=== PATIENT | female | born 1985 ===

== ENCOUNTER 2024-06-07 11:10 | Emergency (ER) | payer MEDICARE, MEDICAID, SELFPAY ==
[2024-06-07 11:23] VITALS: BP 98/35; PULSE 83; RESP 16; TEMP 37; O2SAT 100; BMI 23.9
--- NOTE | 2024-06-07 11:26 | ED_ITS ---
HPI - General Adult General Chief complaint: Back Pain/Injury Stated complaint: Back pain, discolored urine Time Seen by Provider: 06/07/24 17:26 Source: patient Limitations: no limitations History of Present Illness ED Provider: Zamzam Arevalo PA-C HPI narrative: 38-year-old female who is presenting with low back pain, dysuria and discolored urine for over a week. Denies nausea vomiting fever or history of kidney stone. Patient states she has been doing a great deal of heavy lifting and moving, she could have strained her back as well. Pain is worse with movement. Patient also expresses concern for risk for STD exposure, however she is already being treated, but she has not been tested. Denies abdominal pain or vaginal discharge. Related Data Allergies Allergy/AdvReac Type Severity Reaction Status Date / Time No Known Allergies Allergy Verified 06/07/24 11:26 Review of Systems 2 Review of Systems: Yes all other systems are reviewed and are negative Constitutional: Constitutional: Denies fatigue and Denies fever(s) Cardiovascular: Cardiovascular: Denies chest pain and Denies dyspnea Respiratory: Respiratory: Denies cough and Denies dyspnea Gastrointestinal: Gastrointestinal: Denies abdominal pain, Denies nausea and Denies vomiting Genitourinary: Genitourinary: Reports dysuria and Denies vaginal discharge Musculoskeletal: Musculoskeletal: Reports back pain Endocrine: Endocrine: Denies fatigue PMFSH Past Medical History Attestation statement: The following information was validated with the patient. Physical Exam ED Vital Signs: Vital Signs - 24 hr 06/07/24 11:23 Temperature 98.6 F Pulse Rate 83 Respiratory Rate 16 Blood Pressure 98/35 L Pulse Oximetry 100 Oxygen Delivery Method Room Air BMI result Body Mass Index 23.9 Const Other: Alert well-appearing Orientation/consciousness: patient oriented x3 Resp Effort & Inspection: normal respiratory effort Cardio Other: Normal peripheral perfusion Skin Other: Warm dry no rash Neuro General: patient oriented x3, gait normal, no focal motor deficits and CN's II- XI intact bilaterally Psych Other: Calm cooperative Course Course Course Narrative: This is a rapid medical exam performed by Zamzam Arevalo PA-C. The patient is a 38-year-old female who is presenting with low back pain, dysuria and discolored urine for over a week. On exam she has no CVA tenderness, she is afebrile. We will be screening basic labs and a urinalysis. The patient is stable and can return to the waiting room pending her full medical assessment. Medical Decision Making Medical Decision Making MDM Narrative: 38-year-old female who is presenting with low back pain, dysuria and discolored urine for over a week. Denies nausea vomiting fever or history of kidney stone. Patient states she has been doing a great deal of heavy lifting and moving, she could have strained her back as well. Pain is worse with movement. Patient also expresses concern for risk for STD exposure, however she is already being treated, but she has not been tested. Denies abdominal pain or vaginal discharge. Problem: STD exposure History: Per patient I have considered the following differential diagnoses: UTI, pyelonephritis, renal colic, cervicitis, TOA Plan: Concern for UTI and pyelonephritis given concurrent back pain. Although the patient does have a mechanism of injury to support musculoskeletal pain as well. She is also afebrile without active nausea vomiting to suggest pyelonephritis. Screening labs including urinalysis were obtained from triage. I did consider cervicitis and TOA, however she is not having vaginal discharge no abdominal pain. No indication for imaging. Patient is also requesting testing for both gonorrhea and chlamydia, to note again she has already started treatment. I have independently reviewed the following tests: Labs: No leukocytosis, not anemic, no electrolyte abnormality, creatinine normal, urine is concentrated Lab Data 06/07/24 12:01 06/07/24 12:01 Labs: Lab Results 06/07/24 Range/Units 12:01 WBC 8.9 (4.8-10.8) X10*3/uL RBC 4.17 L (4.20-5.50) X10*6/uL Hgb 11.0 L (12.0-16.0) g/dl Hct 34.5 L (37.0-47.0) % MCV 82.7 (80.0-98.0) fL MCH 26.4 L (27.0-33.0) pg MCHC 31.9 (31.0-35.0) g/dl RDW 16.4 H (11.0-16.0) % Plt Count 326 (160-400) X10*3/uL MPV 9.7 (9.4-12.3) fL Immature Gran % (Auto) 0.3 (0.0-0.4) % Neut % (Auto) 62.2 (45-73) % Lymph % (Auto) 28.6 (20-40) % [place] % (Auto) 7.0 (2-11) % Eos % (Auto) 1.7 (0-4) % Baso % (Auto) 0.2 (0-2) % Lymph # (Auto) 2.6 (1.2-4.9) X10*3/uL [place] # (Auto) 0.6 (0.1-1.2) X10*3/uL Eos # (Auto) 0.2 (0.0-0.4) X10*3/uL Baso # (Auto) 0.0 (0.0-0.2) X10*3/uL Abs Immat Gran (auto) 0.03 (0.00-0.03) X10*3/uL Absolute Neuts (auto) 5.5 (2.0-8.3) x10*3/uL Absolute Nucleated RBC 0.000 (0.0-0.012) X10*3/uL Nucleated RBC % (auto) 0.0 (0.0-0.2) /100WBC Sodium 137 (135-145) mmol/L Potassium 3.5 (3.3-5.1) mmol/L Chloride 109 H (96-108) mmol/L Carbon Dioxide 23 (22-29) mmol/L Anion Gap 9 L (12-20) BUN 11 (9-16) mg/dL Creatinine 0.55 (0.5-1.4) mg/dL Estim Creat Clear Calc 120.9 Estimated GFR > 60 Random Glucose 87 (60-115) mg/dL Calcium 9.0 (8.4-10.2) mg/dL Magnesium 2.1 (1.6-2.6) mg/dL Total Bilirubin 0.3 (0.0-1.0) mg/dL AST 23 (5-31) U/L ALT 18 (0-31) U/L Alkaline Phosphatase 63 (39-117) U/L Total Protein 7.0 (6.5-8.0) g/dL Albumin 4.0 (3.5-5.0) g/dL Lipase 19 (8-78) U/L Beta HCG, Quant < 2 mIU/mL Urine Color Dark Yellow Urine Appearance Cloudy Urine pH 5.5 (5.0-9.0) Ur Specific [place] 1.025 (1.005-1.025) Urine Protein Trace (Neg-Trace) mg/dL Urine Glucose (UA) Negative (Negative) mg/dL Urine Ketones Trace (Negative) mg/dL Urine Blood Negative (Negative) Urine Nitrite Negative (Negative) Ur Leukocyte Esterase Small (1+) H (Negative) Urine RBC 0-2 (0-2) /HPF Urine WBC 0-5 (0-5) /HPF Ur Squamous Epith Cells 11-20 (0-2) /HPF Urine Bacteria 1+ (None Seen) Hyaline Casts 0-2 (0-2) /LPF Discharge Plan Discharge Clinical Impression: Thoracic back pain, Dehydration Patient Disposition: Home, Self-Care Instructions: Dehydration (ED), Thoracic Pain (ED) Additional Instructions: All of your labs including your kidney function were normal, your urine is not infected it is concentrated, you need to drink more water. We all should be drinking approximately 96 oz of water a day. In regard to your STD testing, we are screening you for gonorrhea and chlamydia. This testing we will not return today, it should be complete within 1-2 days. You can check your patient portal for results. If you require additional treatment, medication we will be sent to a pharmacy of your choosing. Print Language: Slovak
[2024-06-07 12:11] LABS: MANUAL DIFF FLAG NO
[2024-06-07 12:12] LABS: Basophils Percent Auto 0.2 % (0-2); Eosinophils Absolute Auto 0.2 X10*3/uL (0.0-0.4); Eosinophils Percent Auto 1.7 % (0-4); Hematocrit 34.5 % (37.0-47.0); Imm Gran Abs Auto 0.03 X10*3/uL (0.00-0.03); Imm Gran Pct Auto 0.3 % (0.0-0.4); Lymphocytes Absolute Auto 2.6 X10*3/uL (1.2-4.9); Lymphocytes Percent Auto 28.6 % (20-40); Mean Corpuscular HGB Conc 31.9 g/dl (31.0-35.0); Mean Corpuscular Hemoglobin 26.4 pg (27.0-33.0); Mean Corpuscular Volume 82.7 fL (80.0-98.0); Mean Platelet Volume 9.7 fL (9.4-12.3); Monocytes Absolute Auto 0.6 X10*3/uL (0.1-1.2); Neutrophils Absolute Auto 5.5 x10*3/uL (2.0-8.3); Neutrophils Percent Auto 62.2 % (45-73); Platelet Count 326 X10*3/uL (160-400); Red Blood Count 4.17 X10*6/uL (4.20-5.50); Red Cell Distribution Width 16.4 % (11.0-16.0); White Blood Count 8.9 X10*3/uL (4.8-10.8)
[2024-06-07 12:13] LABS: Appearance Urine Cloudy; Color Urine Dark Yellow; Glucose Urine UA Negative (Negative); Leukocyte Esterase Urine Small (1+) (Negative); Nitrite Urine Negative (Negative); PH 5.5 (5.0-9.0); Specific Gravity - Urine 1.025 (1.005-1.025); UMIC TRIGGER UACC YES; Urine Blood Negative (Negative); Urine Ketones Trace mg/dL (Negative); Urine Protein Trace mg/dL (Neg-Trace)
[2024-06-07 12:29] LABS: Bacteria Urine 1+ (None Seen); Hyaline Casts Urine 0-2 /LPF (0-2); RBC Urine 0-2 /HPF (0-2); UACC Culture Trigger YES; WBC Urine 0-5 /HPF (0-5)
[2024-06-07 12:38] LABS: Alanine Aminotransferase 18 U/L (0-31); Alkaline Phosphatase 63 U/L (39-117); Anion Gap 9 (12-20); Aspartate Amino Transferase 23 U/L (5-31); Bilirubin Total 0.3 mg/dL (0.0-1.0); Blood Urea Nitrogen 11 mg/dL (9-16); Carbon Dioxide 23 mmol/L (22-29); Chloride 109 mmol/L (96-108); Creatinine Clr Calc Pharmacy 120.9; Estimated Glomerular Filt Rate > 60; Glucose Random 87 mg/dL (60-115); Lipase 19 U/L (8-78); Magnesium 2.1 mg/dL (1.6-2.6); Potassium 3.5 mmol/L (3.3-5.1); Sodium 137 mmol/L (135-145)
[2024-06-07 12:39] LABS: HCG Quantitative < 2 mIU/mL
--- OUTSIDE RECORDS SUMMARY | 2024-06-07 17:35 | XMS_ITS | Patient Health Record ---
Author Organization [facility] Address [address] [place] [address] [address] [place] [address] Care Team Providers Care Customer Sales Specialist Name Role Phone Mckenzie Salguero APRN Primary Care Provider MELE Quezada [phone] REASON FOR REFERRAL Reason Palpitation workup Diagnosis 1 AVM (Q27.30) Referral Organization [facility] Referring Provider First Name MELE Referring Provider Last Name JUSTIN Referring Provider Speciality Neurosurge guanaco Referred Provider Soto Daigle Referred Provider Specialty Internal Med icine Referral Priority Routine PROBLEMS Problem Type ICD Code Onset Dates Problem Status W/U Status Risk SNOMED Code Notes Problem Arteriovenous malformation, 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 (85280052) Problem AVM (Q27.30) Active confirmed Problem 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 Cerebral hemorrhage (272890144) Encounters Encounter Location Date Provider Diagnosis [facility] [address] [address] [place] [address] 07/25/2023 MELE ANDERSON [facility] [address] [place] [address] 12/08/2023 MELE ANDERSON [facility] [address] [address] [place] [address] 12/13/2023 MELE ANDERSON [facility] Neurosurgery [address] [place] [address] 05/10/2024 MELE ANDERSON PLAN OF TREATMENT Pending Test Test Name Order Date MRI : Brain with and without contrast Insurance Providers Payer Name Payer Address Payer Phone Subscriber Number Group Number Insured Name Patient Relationship to Insured Coverage Start Date Coverage End Date [place] [address] [address] [place] [address] [id number] Kristal Patton Self - patient is the insured [place] [address] [place] [address] [phone] [id number] Kristal Patton Self - patient is the insured
--- OUTSIDE RECORDS SUMMARY | 2024-06-07 17:36 | XMS_ITS ---
Author Organization [facility] Address [address] [facility] [address] [address] [place] [address] Care Team Providers Care Silviculturist Name Role Phone Mckenzie Salguero APRN Primary Care Provider Unavailable MELE ANDERSON Unavailable [phone] REASON FOR VISIT Gamma knife w/angio Encounters Encounter Location Date Provider Diagnosis [facility] [address] [place] [address] 12/08/2023 MELE ANDERSON PLAN OF TREATMENT No Information
--- OUTSIDE RECORDS SUMMARY | 2024-06-07 17:36 | XMS_ITS | Clinical Summary ---
Author Organization [facility] it Address [address] [place] [address] Care Team Providers Care Rn Ed Name Role Phone Isamar Gorman MD Primary Care Provider [phone] Social History Tobacco Use Types Packs/Day Years Used Date Smoking Tobacco: Never Assessed Sex and Gender Information Value Date Recorded Sex Assigned at Not on file Gender Identity Not on file Sexual Orientation Not on file Plan of Treatment Health Maintenance Due Date Last Done Comments Hepatitis B Vaccines (1 of 3 - 19+ 3-dose series) 2005 Cervical Cancer Screening: P ap Smear 2007 COVID-19 Vaccine (2023-2 5 season) 2023 Influenza Vaccine (#1) 2023 01/26/2017 DTaP,Tdap,and Td Vaccines (2 - Td or Tdap) 03/30/2027 03/30/2017 HIB Vaccines Aged Out No longer eligi ble based on patient's age to complete this topic HPV Vaccines Aged Out No longer eligi ble based on patient's age to complete this topic Hepatitis A Vaccines Aged Out No long er eligible based on patient's age to complete this topic IPV Vaccines Aged Out No longer eligi ble based on patient's age to complete this topic MMR Vaccines Aged Out No longer eligi ble based on patient's age to complete this topic Meningococcal ACWY Vaccine Aged Out N o longer eligible based on patient's age to complete this topic Pneumococcal Vaccine: Pediat rics (0 to 5 Years) and At-Risk Patients (6 to 64 Years) Aged Out No longer eligi ble based on patient's age to complete this topic RSV Immunization Patients Un thomas 20 months Aged Out No longer eligible b ased on patient's age to complete this topic Varicella Vaccines Aged Out No longer eligible based on patient's age to complete this topic Care Teams Rn Ed Relationship Specialty Start Date End Date Isamar Gorman MD [address] [place] [phone] PCP - General Internal Medicine 10/10/16
--- OUTSIDE RECORDS SUMMARY | 2024-06-07 17:36 | XMS_ITS ---
Author Organization [facility] Address [address] [address] [place] [address] Care Team Providers Care Life Skills Trainer Name Role Phone Mckenzie Salguero APRN Primary Care Provider MELE Quezada Unavailable [phone] REASON FOR VISIT Pin sites follow up Encounters Encounter Location Date Provider Diagnosis [facility] [address] [address] [place] [address] 12/13/2023 MELE ANDERSON PLAN OF TREATMENT No Information
--- OUTSIDE RECORDS SUMMARY | 2024-06-07 17:36 | XMS_ITS ---
Author Organization [facility] Address [address] [facility] [address] [address] [place] [address] Care Team Providers Care Aircraft Maintenance Technician Name Role Phone Mckenzie Salguero APRN Primary Care Provider Unavailable MELE ANDERSON Unavailable [phone] REASON FOR VISIT Moving Encounters Encounter Location Date Provider Diagnosis [facility] Neurosurgery [address] [place] [address] 05/10/2024 MELE ANDERSON PLAN OF TREATMENT No Information
[2024-06-07 17:46] VITALS: BP 98/35; PULSE 83; RESP 16; TEMP 37; O2SAT 100
[2024-06-08 12:26] LABS: CT PCR NOT DETECTED (Not Detect.); NG PCR NOT DETECTED (Not Detect.)
== END 2024-06-07 17:48 | disposition home or self-care (01) ==
PROVIDERS: Physician Assistant Medical; Emergency Provider Emergency Medicine Emergency Medical Services
DX: M54.6 Pain in thoracic spine (principal); E86.0 Dehydration; R10.2 Pelvic and perineal pain; Z20.2 Contact with and (suspected) exposure to infections with a predominantly sexual mode of transmission; Z79.899 Other long term (current) drug therapy
CPT/HCPCS: 36415; 80053; 81001; 83690; 83735; 84702; 85025; 87086; 87491; 87591; 99282; 99283

== ENCOUNTER 2024-10-09 15:30 | Outpatient (REF) | payer MEDICARE, MEDICAID, SELFPAY ==
--- NOTE | ~2024-10-09 | MR_ITS ---
CLINICAL HISTORY: Arteriovenous Malformation (AVM) MR Brain with and without intravenous contrast Comparison: None available Findings: No restricted diffusion acute brain infarction. Vascular enhancement appears intra-axial and extra-axial including the genu of the corpus callosum (as can be seen with reported arteriovenous malformation), sulci between frontal lobes, and frontal lobes anterior to the corpus callosum. Vascular nodular enhancement is predominately in the right frontal lobe of the anterior margin of the corpus callosum with nidus measuring 7 x 8 x 7 mm in the right frontal lobe. Adjacent extra-axial vascularity favored to represent prominent in dilated pericallosal artery (branch of the CHET) supporting CHET contribution. Additional vessel and mild siderosis extends into the left frontal lobe (image 28 of series 11). Previous rupture or leakage is considered given intra-axial siderosis in the left frontal lobe. Abnormal T2 prolongation is predominately in the right frontal lobe and also extends to involve left frontal lobe and genu of the corpus callosum. Differential considerations include gliosis, dysplasia, and edema. Low-grade neoplasm is not excluded at this time given mild obscuration of the macdonald matter and mild mass-effect including the medial margin of the right frontal lobe adjacent to corpus callosum. No midline shift or hydrocephalus. Perivascular spaces are noted including bilateral basal ganglia regions. No arterial territorial infarction. Fluid and mucosal thickening including the paranasal sinuses. Small left mastoid effusion. Orbits are unremarkable for artifacts. IMPRESSION: 1. 8 mm nidus in the right frontal lobe from reported arteriovenous malformation. Mild vessels extend into Januvia corpus callosum and left frontal lobe as noted. 2. Mild T2 signal predominately in the right frontal lobe noted about the vascular malformation. Differential considerations include edema. Please consider attention on follow-up to ensure stability. 3. Minimal siderosis in the left frontal lobe is nonspecific. Previous vessel leakage is considered. 4. Otherwise, normal MR signal of the brain parenchyma. This document has been electronically signed by: Balta Sun MD on 10/10/2024 19:45:55
[2024-10-09] MEDS: gadobutroL 7.5 ML VIAL IVPUSH (16:08)
--- OUTSIDE RECORDS SUMMARY | 2024-10-09 17:57 | XMS_ITS | Encounter Summary ---
Author Organization [employer] Address [address] [place] [address] Care Team Providers Care Agricultural Education Professor Name Role Phone Elana Cleveland MD Primary Care Provider [phone] Reason for Referral * Imaging (Routine) - Authorized Specialty Diagnoses / Procedures Referred By Contac t Referred To Contact Radiology Diagnoses AVM (arteriovenous malformation) brain Procedures Mr Brain w/ and w/o Contrast Elana Cleveland MD [address] [place] [address] Phone: tel: fax: [address] Phone: tel: fax: Referral ID Status Reason Start Date Expiration Date V isits Requested Visits Authorized [id number] Authorized 09/20/2024 09/20/2025 1 1 Encounter Details Date Type Department Care Team (Late st Contact Info) Description 09/20/2024 Orders Only [facility] [address] [place], [place] [phone] Elana Cleveland MD [address] [place], [place] [phone] AVM (arteriovenous malformation) brain (Primary Dx) Social History Tobacco Use Types Packs/Day Years Used Date Smoking Tobacco: Never Passive Smoke Exposure: Never Smokeless Tobacco: Never Depression Answer Date Recorded Patient Health Questionnaire-9 Score 15 08/16/2024 Patient Health Questionnaire-9 Score 15 08/16/2024 Last PHQ-9: Questionnaire Data Not on file 0 08/16/2024 Housing Stability Answer Date Recorded What is your housing situation today? I have whitney lima 08/08/[address] you li ve. Do you have problems with any of the following? None of the above 08/08/2024 Food Insecurity Answer Date Recorded Within the past 12 months, y ou worried that your food would run out before you got money to buy more: Never True 08/08/2024 Within the past 12 months,th e food you bought just didn't last and you didn't have enough money to get more: Never True 01/2025 Transportation Answer Date Recorded In the past 12 months, has l ack of transportation kept you from medical appts, meetings, work or from getting things needed for daily living? Yes, it has kept me from medical appointments or getting medications. 08/08/2024 Utilities Answer Date Recorded In the past 12 months, has t he electric, gas, oil or water company threatened to shut off services in your home? No 08/08/2024 Depression Answer Date Recorded Patient Health Questionnaire-2 Score 4 08/16/2024 Internet Access Answer Date Recorded Internet Access Q1 Yes 08/08/2024 Internet Access Q2 Not on file 08/08/2024 Comments Unknown Sex and Gender Information Value Date Recorded Sex Assigned at Female 02/28/2022 10:15 AM EDT Legal Sex Female 10:15 AM EDT Gender Identity Choose not to disclose 10:15 AM EDT Sexual Orientation Choose not to disclose 2021 10:15 AM EDT documented as of this encounter Plan of Treatment Upcoming Encounters Date Type Department Care Team (Late st Contact Info) Description 11/18/2024 4:00 PM EDT Procedure Visit [facility] [address] [place] [address] Elana Cleveland MD [address] [place] [address] Scheduled Orders Name Type Priority Associated Diagnoses Orde r Schedule Mr Brain w/ and w/o Contrast Imaging Routine AVM (arteriovenous malformation) brain Expected: 09/20/2024, Expires: 09/20/2025 documented as of this encounter Visit Diagnoses Diagnosis AVM (arteriovenous malformation) brain- Primary documented in this encounter Additional Health Concerns Assessment Noted Time PHQ-9 Depression Total Score: 15 025 8:54 AM EDT documented as of this encounter Care Teams Agricultural Education Professor Relationship Specialty Start Date End Date Elana Cleveland MD [address] [place] [address] PCP - General Family Medicine 08/16/24 documented as of this encounter
== END 2024-10-09 15:31 | disposition home or self-care (01) ==
LOC: HO.MRI 15:30
PROVIDERS: PCP General Practice; Visit Provider General Practice
DX: Q28.2 Arteriovenous malformation of cerebral vessels (principal)
CPT/HCPCS: 70553; A9585

== ENCOUNTER → 2024-10-09 15:36 | Outpatient (BNV) | payer MEDICARE, MEDICAID, SELFPAY | PROVIDERS: PCP General Practice; Visit Provider Radiology Neuroradiology | DX: Q28.2 Arteriovenous malformation of cerebral vessels (principal) | CPT/HCPCS: 70553 ==

== ENCOUNTER 2024-11-18 17:29 | Outpatient (REF) | payer MEDICARE, MEDICAID, SELFPAY ==
--- OUTSIDE RECORDS SUMMARY | 2024-05-23 06:40 | XMS_ITS | Continuity of Care Document ---
Author Organization [facility]. If a dditional information is needed, contact Health Information Management at [phone] [address] [place] [address] Phone Care Team Providers Care [employer] Boss Name Role Phone Unavailable Unavailable Unavailable Unavailable Unavailable Unavailable Unavailable Unavailable Unavailable Unavailable Unavailable Unavailable Unavailable Unavailable Unavailable Unavailable Unavailable Unavailable Unavailable Unavailable Unavailable Unavailable Unavailable Unavailable Unavailable Unavailable Unavailable Unavailable Unavailable Unavailable Unavailable Unavailable Unavailable Unavailable Unavailable Unavailable Unavailable Unavailable Unavailable Unavailable Unavailable Unavailable Unavailable Unavailable Unavailable Unavailable Problems Vasitis Onset:23-May-2024 Cesar Francois MD Vaginitis Onset:23-May-2024 Cesar Francois MD Venereal disease screening Onset:23-May-2024 Cesar Francois MD Bacterial conjunctivitis Onset:07-Feb-2023 Hong Rush MD Depressive disorder Onset:23-Aug-2022 Cesar Francois MD Abscess Onset:30-Mar-2022 [facility] Dental caries Onset:30-Dec-2021 Anna Muñoz MD DENTAL INFECTION Onset:30-Dec-2021 Anna Muñoz MD DENTAL PAIN Onset:30-Dec-2021 Anna Muñoz MD Suspected COVID-19 Onset:03-Nov-2021 Donna Escobar MD Acute viral disease Onset:03-Nov-2021 Donna Escobar MD Renewal of prescription Onset:11-Sep-2021 Santosh Harper PA Drug withdrawal Onset:11-Aug-2021 TAMRO Urinary tract infectious dis ease Onset:13-Apr-2021 Cesar Francois MD Dysuria Onset:13-Apr-2021 Cesar Francois MD Epidermal burn of thumb Onset:12-Dec-2020 Donna Escobar MD Allergies and Adverse Reactions No Known Allergies(Allergy) Onset: 12-Dec-2020 Medications ibuprofen 800 MG Oral Tablet ;800 MILLIGRAM* ORAL TID PRN Start:30-Mar-2022 Status:Discontinued Comments:800 MG PO TID PRN As Needed for pAIN clindamycin 300 MG Oral Caps ule [Cleocin];300 MILLIGRAM* ORAL Q8HR Start:30-Mar-2022 Status:Discontinued Comments:300 MG PO Q8HR AMOXIL 500 MG;500 MILLIGRAM* ORAL Q8HR Start:30-Dec-2021 Status:Discontinued Comments:500 MG PO Q8HR OLANZapine 10 MG Disintegrat ing Oral Tablet;10 MILLIGRAM* ORAL DAILY Start:11-Sep-2021 Status:Discontinued Comments:10 MG PO DAILY PARoxetine 20 MG (as PARoxet ine hydrochloride 22.76 MG ) Oral Tablet;20 MILLIGRAM* ORAL DAILY Start:11-Sep-2021 Status:Discontinued Comments:20 MG PO DAILY mirtazapine 15 MG Disintegra ting Oral Tablet [Remeron];15 MILLIGRAM* ORAL QHS Start:11-Sep-2021 Status:Discontinued Comments:15 MG PO QHS OLANZapine 10 MG Oral Tablet ;10 MILLIGRAM* ORAL QHS Start:11-Aug-2021 Status:Discontinued Comments:10 MG PO QHS PARoxetine 20 MG (as PARoxet ine hydrochloride 22.76 MG ) Oral Tablet;20 MILLIGRAM* ORAL DAILY Start:11-Aug-2021 Status:Discontinued Comments:20 MG PO DAILY mirtazapine 15 MG Oral Table t [Remeron];15 MILLIGRAM* ORAL QHS Start:11-Aug-2021 Status:Discontinued Comments:15 MG PO QHS mirtazapine 7.5 MG Oral Tabl et Start:13-Apr-2021 Status:Discontinued OLANZapine 5 MG Oral Tablet; 5 MILLIGRAM* ORAL DAILY Start:13-Apr-2021 Status:Discontinued Comments:5 MG PO DAILY PARoxetine hydrochloride 10 MG Oral Tablet [Paxil] Start:13-Apr-2021 Status:Discontinued cephalexin 500 MG Oral Capsu le;500 MILLIGRAM* ORAL Q8H Start:13-Apr-2021 Status:Discontinued Comments:500 MG PO Q8H Social History Smoking Status Smokes tobacco daily Recorded: 23-May-2024 Smokes tobacco daily Recorded: 07-Feb-2023 Smokes tobacco daily Recorded: 23-Aug-2022 Smokes tobacco daily Recorded: 30-Mar-2022 Tobacco smoking consumption unknown Recorded: Dec-2021 Never smoked tobacco Recorded: 03-Nov-2021 Never smoked tobacco Recorded: 11-Sep-2021 Never smoked tobacco Recorded: 11-Aug-2021 Never smoked tobacco Recorded: 13-Apr-2021 Never smoked tobacco Recorded: 12-Dec-2020 Results Urine Culture CC/Cath Indwell Ordered On:23-May-2024 21:17 Clean Catch Urine CultureSpecialResults:NGU1No Growth URINALYSIS W/REFLEX CULTURE Ordered On:23-May-2024 Comments:Indication for culture: Dysuria/Frequency 23-May-2024 10:36 UA APPEARANCECLEAR Range:CLEAR UA BILIRUBIN DIPSTICKNEGATIVE Ra nge:NEGATIVE UA BLOOD DIPSTICKNEGATIVE Range: NEGATIVE UA COLORYELLOW Range:YELLOW UA GLUCOSE DIPSTICKNEGATIVEmg/dL Range:NEGATIVE mg/dL UA KETONE DIPSTICKTRACEmg/dL Ran ge:NEGATIVE mg/dL UA LEUKOCYTE ESTERAS E DIPSTICKSMALL(Abnormal) Range:NEGATIVE UA NITRITE DIPSTICKNEGATIVE Rang e:NEGATIVE UA PH DIPSTICK7.5(Normal) Range: 5-8.5 UA PROTEIN DIPSTICKTRACEmg/dL Ra nge:NEGATIVE mg/dL UA SPECIFIC GRAVITY1.020 UA UROBILINOGEN DIPSTICK1.0{E.U./dL} Range:0.2{E.U./dL}-1{E.U./dL} UA MICROSCOPIC Ordered On:23-May-2024 Comments: Indication for culture: Dysuria/Frequency 23-May-2024 10:36 UA BACTERIAFEW(Abnormal) Range :NEGATIVE UA EPITHELIAL CELLSFEW/[HPF] Ran ge:FEW /Hpf UA RBC2-5/[HPF](Abnormal) Range: 0/[HPF]-2/[HPF] UA NHI48-53/[HPF](Abnormal) Rang e:0/[HPF]-2/[HPF] UA AMORPHOUS SEDIMENTFEW Range:N EGATIVE UA TRICHOMONASRARE Range:NEGATIV E TRICHOMONAS WET PREP Ordered On:23-May-2024 10:31 TRICHOMONAS WET PREP Result Prompts:CLUE CELLS FEW, ATRICHOMONAS MODERATE, AYEAST NONE SEEN(Abnormal) DNA PROBE CHLAMYDIA GC Ordered On:23-May-2024 14:42 DNA PROBE CHLAMYDIANegative Ra nge:Negative Comments:The GenProbe Aptima uses Target Capture (rRNA) withamplification to qualitatively detect Chlamydia trachomatisin endocervical or urethral swab specimens or in urinesamples. This assay is not FDA approved for sites other thanurogenital and urine samples. Other specimen sources (i.e.nasopharyngeal, rectal) are not acceptable for testing. DNA PROBE N.GONORRHE A (GC)Negative Range:Negative Comments:The GenProbe Aptima uses Target Capture (rRNA) withamplification to qualitatively detect Neisseria gonorrhoeaein endocervical or urethral swab specimens or in urinesamples. This assay is not FDA approved for sites other thanurogenital and urine samples. Other specimen sources (i.e.nasopharyngeal, rectal) are not acceptable for testing. Vital Signs 23-May-2024 09:42 Erftxaysmtw22.2f Comments:98.2 Pulse93 Comments:93 Respiratory Rate16 Comments:16 O2 IVR646% Comments:100 BP [id number][Hg] Comments:11 1 BP Hqgqookyc73vl[Hg] Comments:77 Height5.2974337[ft_us] Comments: 5 Tobjsx27.364kg Comments:61.364 23-May-2024 09:42 BMI23.2kg/m2 Comments:23.2 Encounters Emergency Encounter Reason:STI TESTING Encounter Diagnosis:Encounter for screening for infections with a predominantly sexual mode of transmission,Nicotine dependence, unspecified, uncomplicated,Acute vaginitis 23-May-2024 09:[id number] 10:40 [facility] Discharge Disposition:Discharged to home or self care (routine discharge) Cesar Francois MD-23-May-2024 [facility] ([facility])EMERGENCY PROVIDER REPORTREPORT#:[id number] REPORT STATUS: SignedDATE:05/23/24 TIME: 1030PATIENT: GENIA RICHTER UNIT #: [id number]#: [id number] ROOM/BED:: 86 AGE: 39 SEX: F PCP PHYS: Mckenzie Salguero APRNSERVICE AUTHOR: Sachi New MDREP SRV REP SRV TM: 1030* ALL edits or amendments must be made on the electronic/computer document *HPI-General IllnessGeneralInitial Greet Date/Time 05/23/24 0945PresentationChief Complaint __ ( STD screening)Past Medical History - AdultStated Complaint STI TESTINGAllergiesCoded Allergies:No Known Allergies (12/12/20)Home MedicationsActive ScriptsGentamicin Sulfate 1 DROP RIGHT EYE Q4HR Gentamicin Sulfate 1 DROP RIGHT EYE Q4HR #5 ML Prov: 02/07/23Mirtazapine 15 MG PO QHS Mirtazapine 15 MG PO QHS #30 TAB Prov: SACHI NEW MD 08/23/22OLANZapine (ZyPREXA ZYDIS) 10 MG PO DAILY OLANZapine (ZyPREXA ZYDIS) 10 MG PO DAILY #30 TAB Prov: SACHI NEW MD 08/23/22Past Medical History:Reports: Depression/mood disorder.Additional Medical HistoryptsdSmoking status for patients 13 years old or older: Current every day smokerPhysical ExamVital SignsVital SignsFirst Documented: Result Date Time Pulse Ox 100 05/23 0942 B/P 111/77 05/23 0942 B/P Mean 88 05/23 0942 O2 Delivery Room air 05/23 941 Temp 36.8 05/23 0942 Pulse 93 05/23 0942 Resp 16 05/23 0942Last Documented: Result Date Time Pulse Ox 100 05/23 0942 B/P 111/77 05/23 0942 B/P Mean 88 05/23 0942 O2 Delivery Room air 05/23 941 Temp 36.8 05/23 0942 Pulse 93 05/23 0942 Resp 16 05/23 0942Review of Vital Signs ReviewedPhysical ExamGenitourinary General Client Consultant present (RN) Female Genitourinary External genitalia NL, No bleeding, No cervical motiontend, Os closed, No foreign body, No adnexal mass, No adnexal tenderness Text/Dict NotesTake yellowish discharge,Interpretation DiagnosticsLab Results InterpretationResultsLaboratory Tests: 05/23 0956 Serology Chlamydia DNA Probe (Negative) Negative N.gonorrhoeae DNA Probe (Negative) Negative Urines Urine Color (YELLOW) YELLOW Urine Appearance (CLEAR) CLEAR Urine pH (5.0 - 8.5) 7.5 Ur Specific [place] 1.020 Urine Protein (NEGATIVE mg/dL) TRACE Ur Glucose (Stick) (NEGATIVE mg/dL) NEGATIVE Urine Ketones (NEGATIVE mg/dL) TRACE Urine Blood (NEGATIVE) NEGATIVE Urine Nitrite (NEGATIVE) NEGATIVE Urine Bilirubin (NEGATIVE) NEGATIVE Urine Urobilinogen (0.2 - 1.0 E.U./dL) 1.0 Ur Leukocyte Esterase (NEGATIVE) SMALL H Urine RBC (0 - 2 /Hpf) 2-5 H Urine WBC (0 - 2 /Hpf) 15-25 H Ur Epithelial Cells (FEW /Hpf) FEW Amorphous Sediment (NEGATIVE) FEW Urine Bacteria (NEGATIVE) FEW H U Trichomonas Species (NEGATIVE) RAREMicrobiology: Date/Time Procedure - Status Source Growth 05/23 1036 Urine Culture - COMP Urine 05/23 0956 Trichomonas Wet Mount - COMP CervixRe-Evaluation MDMFree Text MDM NotesFree Text MDM [id number] female came to the emergency room because of yellowish vaginaldischarge and burning for 2 days. Denies abdominal pain, vaginal bleeding,fever, urinary symptoms, nausea, vomiting, flank pain or any other complaintPhysical examinationGeneral: alert oriented x 3 not in acute distressHEENT: PERLNeck: no JVD, no neck rigidityLungs: clear to auscultation bilaterally no wheezing normal respiratory soundsHeart: heart regular rate and rhythm no murmur heart sounds normalAbdomen: bowel sound positive nontender nondistendedBack: no CVA tendernessExtremities: pulses intact no edemaNeuro alert oriented x 3 no gross deficitPsych slightly anxious not suicidal not homicidal no hallucination or delusionsClue cells on wet prep. Treated with Flagyl on dischargeChlamydia and gonorrhea pending and patient will be called back per protocolAdvised to follow- up with PCP, Department of Health for the testing of othersexually transmitted diseasesCounseled Regarding Diagnosis, Prescriptions, Need for follow-up, When to returnto EDPrescriptions Reviewed Risks, Benefits, Alternative treatment Discharge NoteI have spoken with the patient and/or caregivers. I have explained the patient'scondition, diagnosis and treatment plan based on the information available to meat this time. I have answered the patient's and/or caregiver's questions andaddressed any concerns. The patient and/or caregivers have as good anunderstanding of the patient's diagnosis, condition and treatment plan as can beexpected at this point. The vital signs have been stable. The patient'scondition is stable and appropriate for discharge from the emergency department.The patient will pursue further outpatient evaluation with the primary carephysician or other designated or consulting physician as outlined in thedischarge instructions in case they do not have one already. The patient and/orcaregivers are agreeable to this plan of care and follow-up instructions havebeen explained in detail. The patient and/or caregivers have received theseinstructions in written format and have expressed an understanding of thedischarge instructions. The patient and/or caregivers are aware that anysignificant change in condition or worsening of symptoms should prompt animmediate return to this or the closest emergency department or a call to 911.Thank you for choosing [facility] for your healthcare needs and it was my pleasure john the part of your care teamDr. YousafAdditional TextPartner screening advise, safer sex practices patient education providedPatient Discharge DepartureVital Signs/ConditionVital SignsFirst Documented: Result Date Time Pulse Ox 100 05/23 0842 B/P 111/77 05/23 941 B/P Mean 88 05/23 941 O2 Delivery Room air 05/23 941 Temp 36.8 05/23 941 Pulse 93 05/23 941 Resp 16 05/23 941Last Documented: Result Date Time Pulse Ox 100 05/23 0942 B/P 111/77 05/23 0942 B/P Mean 88 05/23 941 O2 Delivery Room air 05/23 941 Temp 36.8 05/23 941 Pulse 93 05/23 09 Resp 16 05/23 941All vital signs available at the time of this entry have been reviewed.Clinical ImpressionClinical ImpressionPrimary Impression: Screening for STD (sexually transmitted disease)Secondary Impressions: VaginitisDisposition DecisionDischarge )( Discharged to Home Yes )( Time 1020 )( Date 05/23/24Discharge/Care Plan(Auto) PrescriptionsCurrent Visit ScriptsMetronidazole (metroNIDAZOLE) 500 MG PO Q12HR Metronidazole (metroNIDAZOLE) 500 MG PO Q12HR #14 TABPatient Instructions Safe SexAdditional InstructionsLabs are sent for chlamydia and gonorrhea. If positive you will be notified.There are many other sexually transmitted diseases including syphilis HIVhepatitis Herpes etc. these tests are not written E performed in the emergencyroom. Please arrange if follow-up appointment with your primary care physicianfor testing of other sexually transmitted diseases. If unable to arrangeappointment with your primary care physician you may consider screening of thesesexually transmitted diseases at local [facility].Thank you for choosing [facility] for your healthcare needs and it was my pleasure john the part of your care teamDr. ScanlonalsProvider Referral: Mckenzie Salguero APRN Address: [address] [place] [address] [place] [id number] MeasuresBP F/U for HTN Referred for BP f/u < 4wk, F/u with PCP/other doc at 0837RPT #: [id number] OF REPORT Plan of Treatment Labs are sent for chlamydia and gonorrhea. If positive you will be notified. There are many other sexually transmitted diseases including syphilis HIV hepatitis Herpes etc. these tests are not written E performed in the emergency room. Please arrange if follow-up appointment with your primary care physician for testing of other sexually transmitted diseases. If unable to arrange appointment with your primary care physician you may consider screening of these sexually transmitted diseases at local [facility]. Thank you for choosing [facility] for your healthcare needs and it was my pleasure to be the part of your care team Dr. New Future Tests Future scheduled test information is unavailable Pending Tests Test Name Ordered Date Scheduled Date DNA PROBE CHLAMYDIA May 23, 2024 9:56am DNA PROBE N.GONORRHEA (GC) May 23, 2024 9: 56am Urine Culture CC/Cath Indwell May 23, 2024 10:36am Future Visits Future appointment information is unavailable Referrals to Other Providers Reason for Referral Referral Start Date Provider Provider Contact Information Provider Address Mckenzie Salguero Work Phone: [phone] [address] [facility] [address] Future Procedures Future procedure information is unavailable Future Medications Future medication information is unavailable Patient Instructions Instruction Admit Date Bacterial Vaginosis, [id number] Shubham y 2024 8:41am Safe Sex May 23, 2024 8 :41am Assessments Diagnosis Onset Date Resolution Status Admit Date Screening for STD (sexually transmitted disease) Active May 8:41am Vasitis Active May 23, 2024 8:41am Vaginitis Active May 23, 2024 8:41am
--- OUTSIDE RECORDS SUMMARY | 2024-11-18 17:32 | XMS_ITS | Patient Health Record ---
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 Encounters Encounter Location Date Provider Diagnosis [facility] OP [address] [place] [address] 12/08/2023 MELE ANDERSON [facility] [address] [address] [place] [address] 12/13/2023 MELE ANDERSON [facility] Neurosurgery [address] [place] [address] 05/10/2024 MELE ANDERSON [facility] [address] [address] [place] [address] 11/08/2024 MELE ANDERSON Plan Of Treatment No Information Insurance Providers Payer Name Payer Address Payer Phone Subscriber Number Group Number Insured Name Patient Relationship to Insured Coverage Start Date Coverage End Date [place] Part [place] [address] [address] [place] [address] [id number] Abdi Kristal Self - patient is the insured Medicaid [place] [address] [place] [address] [id number] Kristal Patton Self - patient is the insured
--- OUTSIDE RECORDS SUMMARY | 2024-11-18 17:32 | XMS_ITS | Encounter Summary ---
Author Organization [email or web address] Address [address] [facility] [address] [place] [address] Care Team Providers Care Eye Glass Frame Polisher Name Role Phone Elana Cleveland MD Primary Care Provider [phone] Encounter Details Date Type Department Care Team (Latest Contact Info) Description 11/18/2024 Travel Social History Tobacco Use Types Packs/Day Years Used Date Smoking Tobacco: Never Passive Smoke Exposure: Never Smokeless Tobacco: Never Depression Answer Date Recorded Patient Health Questionnaire-9 Score 0 11/18/2024 Patient Health Questionnaire-9 Score 0 11/18/2024 Last PHQ-9: Questionnaire Data Not on file 0 11/18/2024 Housing Stability Answer Date Recorded What is your housing situation today? I have whitney clarence 08/08/[address] you li [...] Answer Date Recorded Patient Health Questionnaire-2 Score 0 11/18/2024 Internet Access Answer Date Recorded Internet Access [...] AM EDT documented as of this encounter Functional Status * Over the past 2 weeks, how often have you been bothered by any of the following problems? Question Answer Date of Assessment Author Patient Health Questionnaire-2 Score 0 11/18/2024 4:12 PM EDT Janice Reno MA * Little interest or pleasure in doing things Answer Date of Assessment Author Not at all 11/18/2024 4:12 PM EDT Janice Silva MA * Feeling down, depressed, or hopeless Answer Date of Assessment Author Not at all 11/18/2024 4:12 PM EDT Janice Silva MA * Trouble falling or staying asleep, or sleeping too much Answer Date of Assessment Author Not at all 11/18/2024 4:12 PM EDT Janice Silva MA * Feeling tired or having little energy Answer Date of Assessment Author Not at all 11/18/2024 4:12 PM EDT Janice Silva MA * Poor appetite or overeating Answer Date of Assessment Author Not at all 11/18/2024 4:12 PM EDT Janice Silva MA * Feeling bad about yourself - or that you are a failure or have let yourself or your family down Answer Date of Assessment Author Not at all 11/18/2024 4:12 PM EDT Janice Silva MA * Trouble concentrating on things, such as reading the newspaper or watching television Answer Date of Assessment Author Not at all 11/18/2024 4:12 PM EDT Janice Silva MA * Moving or speaking so slowly that other people could have noticed? Or the opposite - being so fidgety or restless that you have been moving around a lot more than usual. Answer Date of Assessment Author Not at all 11/18/2024 4:12 PM EDT Janice Silva MA * Thoughts that you would be better off or hurting yourself in some way Answer Date of Assessment Author Not at all 11/18/2024 4:12 PM EDT Janice Silva MA * Patient Health Questionnaire-9 Score Answer Date of Assessment Author 0 11/18/2024 4:12 PM EDT Janice Silva MA * Over the last 2 weeks, how often have you been bothered by any of the following problems? Question Answer Date of Assessment Author Feeling nervous, anxious, or on edge 0 11/18/2024 4:13 PM EDT Janice Reno MA Not being able to stop or control worrying 0 11/18/2024 4:13 PM EDT Janice Reno MA Worrying too much about different things 0 11/18/2024 4:13 PM EDT Janice Reno MA Trouble relaxing 0 11/18/2024 4:13 PM EDT Janice Miranda MA Being so restless that it is hard to sit still 0 11/18/2024 4:13 PM EDT Janice Reno MA Becoming easily annoyed or irritable 0 11/18/2024 4:13 PM EDT Janice Reno MA Feeling afraid as if something awful might happen 0 11/18/2024 4:13 PM EDT Janice Gentile MA SILVIANO-7 Total Score 0 11/18/2024 4:13 PM EDT Janice Reno MA documented as of this encounter Plan of Treatment Not on file documented as of this encounter Visit Diagnoses Not on filedocumented in this encounter Additional Health Concerns Assessment Noted Time PHQ-9 Depression Total Score: 0 11/19/19 25 4:12 PM EDT documented as of this encounter Care Teams Eye Glass Frame Polisher Relationship Specialty Start Date End Date Elana Cleveland MD [address] [place] [address] [place] [address] PCP - General Family Medicine 08/16/24 documented as of this encounter
--- OUTSIDE RECORDS SUMMARY | 2024-11-18 17:32 | XMS_ITS | Clinical Summary ---
Author Organization [facility] Address [address] [place] [address] Care Team Providers Care Freezer Machine Operator Name Role Phone Isamar Gorman MD Primary Care Provider [phone] Social History Tobacco Use Types Packs/Day Years Used Date Smoking Tobacco: Never Assessed Comments Unknown Sex and Gender Information Value Date Recorded Sex Assigned at Not on file Legal Sex Female 10:46 AM EST Gender Identity Not on file Sexual Orientation Not on file Plan of Treatment Health Maintenance Due Date Last Done Comments Hepatitis B Vaccines (1 of 3 - 19+ 3-dose series) 2005 Cervical Cancer Screening: P ap Smear 2007 COVID-19 Vaccine ( - 2023-2 5 season) 2023 Depression Screening 05/01/2024 Influenza Vaccine (#1) 2024 01/26/2017 DTaP,Tdap,and Td Vaccines (2 - Td [...] patient's age to complete this topic Meningococcal B Vaccine Aged Out No l onger eligible based on patient's age to complete this topic Pneumococcal Vaccine: Pediat rics (0 to 5 Years) and At-Risk Patients (6 to 49 Years) Aged Out No longer eligi ble based on patient's age to complete this topic RSV Immunization Patients Un thomas 20 months Aged Out No longer eligible b ased on patient's age to complete this topic Varicella Vaccines Aged Out No longer eligible based on patient's age to complete this topic Care Teams Freezer Machine Operator Relationship Specialty Start Date End Date Isamar Gorman MD [address] [place] [phone] PCP - General Internal Medicine 10/10/16
--- OUTSIDE RECORDS SUMMARY | 2024-11-18 17:33 | XMS_ITS | Clinical Summary ---
Author Organization [facility] Address [address] [place] [address] Phone Care Team Providers Care Machine Presser Name Role Phone Elana Cleveland MD Primary Care Provider + Encounters Date Type Department Care Team Description 08/21/2024 Transcribe Orders [facility] [address] [place] [phone] Elana Cleveland MD Encounter for rehabilitation (Primary Dx) from Last 3 Months Social History Tobacco Use Types Packs/Day Years Used Date Smoking Tobacco: Never Assessed Comments Unknown Sex and Gender Information Value Date Recorded Sex Assigned at Not on file Legal Sex Female 10:57 AM EDT Gender Identity Not on file Sexual Orientation Not on file Plan of Treatment Not on file Medical Devices [place] [address] [employer] MEDICARE PART A & B [place] [facility] B Member Subscriber Plan / Payer (Ef fective 2016-Present) Name:Kristal Patton Member ID:[id number] Relation to Subscriber:Self Name:Kristal Patton Subscriber ID:[id number] Payer ID:[id number] Group ID:Not on file Type:Medicare Address: [facility] [employer] [facility] [address] [place] [address] [facility] A & B Member Subscriber Plan / Payer (Ef fective 2016-Present) Name:Kristal Patton Member ID:[id number] Relation to Subscriber:Self Name:Kristal Patton Subscriber ID:[id number] Payer ID:[id number] Group ID:Not on file Type:Medicare Address: [employer] [address] [facility] MEDICARE PART A & B Care Teams Machine Presser Relationship Specialty Start Date End Date Elana Cleveland MD [address] [place] [address] PCP - General Family Medicine 10/29/24 Additional Source Comments The information contained in this document represents components of the legal health record. It is not the complete legal health record.[facility]
[2024-11-19 02:19] LABS: CT PCR NOT DETECTED (Not Detect.); NG PCR NOT DETECTED (Not Detect.)
[2024-11-19 10:00] LABS: Bacterial Vaginosis PCR POSITIVE (Negative); Candida Group PCR NOT DETECTED (Not Detect); Candida glab krusei PCR NOT DETECTED (Not Detect); Trichomonas vaginalis PCR NOT DETECTED (Not Detect)
== END 2024-11-18 17:30 | disposition home or self-care (01) ==
LOC: HO.HHCLNP 17:29
PROVIDERS: Visit Provider General Practice
DX: Z12.4 Encounter for screening for malignant neoplasm of cervix (principal); Z11.3 Encounter for screening for infections with a predominantly sexual mode of transmission; Z11.59 Encounter for screening for other viral diseases
CPT/HCPCS: 81515; 87491; 87591; 87626; 88175